=== PATIENT | female | born 1995 | race Hispanic/Latino ===

== ENCOUNTER 2017-11-09 01:58 | Emergency (ER) | payer MEDICAID ==
[2017-11-09 02:31] LABS: BASOPHILS % (AUTO) 0.3 % (0.0-5.0); EOSINOPHILS % (AUTO) 2.3 % (0.0-8.0); HEMATOCRIT 30.6 % (36-48); LYMPHOCYTES % (AUTO) 17.9 % (21.0-51.0); MEAN CORPUSCULAR HGB CONC 35.2 g/dL (32.0-36.0); MEAN CORPUSCULAR VOLUME 85.3 fL (79-99); MONOCYTES % (AUTO) 6.4 % (3.0-13.0); NEUTROPHILS % (AUTO) 73.1 % (40.0-77.0); PLATELET COUNT (AUTO) 251 K/uL (130-400); RED BLOOD CELL COUNT(AUTO) 3.59 MIL/uL (4.00-5.50); RED CELL DISTRIBUTION WIDTH 15.3 % (11.0-15.5); WHITE BLOOD COUNT (AUTO) 10.8 K/uL (4.8-10.8)
[2017-11-09 02:35] LABS: APPEARANCE,URINE Clear (CLEAR); BILIRUBIN,URINE Negative (NEGATIVE); COLOR,URINE Yellow (YELLOW); GLUCOSE, URINE (UA) Negative (NEGATIVE); KETONES,URINE Negative (NEGATIVE); LEUKOCYTE ESTERASE ,URINE Small (NEGATIVE); NITRATE,URINE Negative (NEGATIVE); OCCULT BLOOD,URINE Moderate (NEGATIVE); PROTEIN,URINE Negative (NEGATIVE); UROBILINOGEN,URINE 0.2 mg/dL (0.2-1.0)
[2017-11-09 02:40] LABS: CREATININE 0.6 mg/dL (0.5-1.5); POTASSIUM 3.5 mmol/L (3.5-5.1)
[2017-11-09 02:45] LABS: ALBUMIN 2.6 g/dL (3.5-5.0); BILIRUBIN,TOTAL 0.5 mg/dL (0.2-1.0); TOTAL PROTEIN, SERUM 6.7 g/dL (6.0-8.3)
[2017-11-09 02:56] LABS: BACTERIA,URINE None Seen /HPF (None Seen); RBC,URINE None Seen /HPF (0-1); SQUAMOUS EPITHELIAL CELL,UR Few /HPF (0-2); WBC,URINE 0-1 /HPF (0-1)
== END 2017-11-09 04:52 | disposition home or self-care (01) ==
LOC: EDH 01:58
DX: R60.0 Localized edema (principal); Z79.899 Other long term (current) drug therapy; Z98.890 Other specified postprocedural states
CPT/HCPCS: 36415; 80053; 81001; 85025; 93005; 93970